=== PATIENT | female | born 1980 | race Caucasian/White ===

== ENCOUNTER 2016-07-24 03:27 | Emergency (ER) | payer OTHER ==
[~2016-07-24] VITALS: Ht 170.2 cm; Wt 149.7 kg
--- NOTE | ~2016-07-24 | EKG ---
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
[~2016-07-24 03:27] MED LIST: ANTIVERT25 MG PO; BP PILL
[2016-07-24] MEDS ORDERED: HYDROCHLOROTH12.5 M1 PO (03:39)
[2016-07-24 04:06] LABS: ABSOLUTE NEUTROPHILS 7.4 thou/uL (1.4-8.2); BASOPHILS 1.1 % (0.0-2.0); HEMATOCRIT 37.2 % (37.0-47.0); HEMOGLOBIN 12.4 gm/dL (12.0-15.0); LYMPHOCYTES 24.5 % (24.0-44.0); MCH 30.6 pg (26.0-34.0); MCHC 33.4 % (28.0-37.0); MCV 91.5 fL (80.0-100.0); PLATELET COUNT 207 thou/uL (150-400); POLYS 66.4 % (36.0-66.0); RBC 4.07 mil/uL (4.20-5.00); RDW 15.5 % (10.5-14.5); WBC 11.2 thou/uL (4.0-11.0)
[2016-07-24 04:11] LABS: MANUAL DIFF NO
[2016-07-24 04:17] LABS: CALCIUM 8.5 mg/dL (8.5-10.1); CREATININE 0.9 mg/dL (0.6-1.3); POTASSIUM 3.7 mmol/L (3.5-5.1)
[2016-07-24 04:23] LABS: ALBUMIN 3.2 g/dL (3.4-5.0); TOTAL BILIRUBIN 0.2 mg/dL (<0.1-1.0)
[2016-07-24 04:45] VITALS: BP 133/76
== END 2016-07-24 04:45 | disposition home or self-care (01) ==
LOC: ER 03:27
PROVIDERS: Emergency Medicine
DX: R07.9 Chest pain, unspecified (principal); R42 Dizziness and giddiness; F17.210 Nicotine dependence, cigarettes, uncomplicated; I10 Essential (primary) hypertension; Z88.5 Allergy status to narcotic agent; Z91.010 Allergy to peanuts

== ENCOUNTER 2016-11-23 23:57 | Emergency (ER) | payer OTHER ==
[~2016-11-23] VITALS: Ht 167.6 cm; Wt 154.7 kg
[~2016-11-23 23:57] MED LIST changes: +HYDROCHLOROTH12.5 M1 PO
[2016-11-24] MEDS ORDERED: NORCO 5-325 TA1 EACH PO (01:19)
[2016-11-24 01:34] VITALS: BP 136/85
== END 2016-11-24 01:49 | disposition home or self-care (01) ==
LOC: ER 23:57
DX: S83.92XA Sprain of unspecified site of left knee, initial encounter (principal); I10 Essential (primary) hypertension; F17.210 Nicotine dependence, cigarettes, uncomplicated; Z98.890 Other specified postprocedural states; Z88.5 Allergy status to narcotic agent; Z91.010 Allergy to peanuts; Z91.018 Allergy to other foods; W19.XXXA Unspecified fall, initial encounter; Y93.89 Activity, other specified; Y92.89 Other specified places as the place of occurrence of the external cause; Y99.8 Other external cause status

== ENCOUNTER 2017-03-29 16:40 | Emergency (ER) | payer OTHER ==
[~2017-03-29] VITALS: Ht 170.2 cm; Wt 162.4 kg
--- NOTE | ~2017-03-29 | EKG ---
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
[~2017-03-29 16:40] MED LIST changes: +NORCO 5-325 TA1 EACH PO
[2017-03-29 17:23] LABS: BASOPHILS 0.6 % (0.0-2.0); EOSINOPHILS 2.1 % (0.0-3.0); HEMATOCRIT 36.8 % (37.0-47.0); HEMOGLOBIN 12.4 gm/dL (12.0-15.0); LYMPHOCYTES 17.4 % (24.0-44.0); MCH 30.9 pg (26.0-34.0); MCHC 33.7 g/dL (28.0-37.0); MCV 91.7 fL (80.0-100.0); MONOCYTES 4.3 % (1.0-8.0); PLATELET COUNT 237 thou/uL (150-400); POLYS 75.6 % (36.0-66.0); RBC 4.01 mil/uL (4.20-5.00); RDW 14.7 % (10.5-14.5); WBC 13.2 thou/uL (4.0-11.0)
[2017-03-29 17:25] LABS: MANUAL DIFF NO
[2017-03-29 17:52] LABS: ANION GAP 8 mmol/L (7-16); BUN 17 mg/dL (7-18); CALCIUM 8.9 mg/dL (8.5-10.1); CHLORIDE 103 mmol/L (98-107); CO2 28 mmol/L (21-32); CREATININE 0.8 mg/dL (0.6-1.0); GLUCOSE 126 mg/dL (74-106); POTASSIUM 3.7 mmol/L (3.5-5.1); SODIUM 139 mmol/L (136-145)
[2017-03-29 18:00] LABS: ALBUMIN 3.5 g/dL (3.4-5.0); ALKALINE PHOSPHATASE 119 U/L (46-116); SGOT 14 U/L (15-37); SGPT 22 U/L (30-65); TOTAL BILIRUBIN 0.3 mg/dL (<0.1-1.0); TOTAL PROTEIN 7.3 g/dL (6.4-8.2); TROPONIN-I < 0.04 ng/mL (<0.04-0.07)
[2017-03-29] MEDS ORDERED: HYDROCHLOROTHIA25 M1 PO (18:11)
[2017-03-29] MEDS ORDERED: AMLODIPINE BESYL5 M1 PO (18:12)
[2017-03-29 18:36] VITALS: BP 139/87
== END 2017-03-29 18:37 | disposition home or self-care (01) ==
LOC: ER 16:40
PROVIDERS: Physician Assistant
DX: R07.89 Other chest pain (principal); I10 Essential (primary) hypertension; F10.99 Alcohol use, unspecified with unspecified alcohol-induced disorder; F17.210 Nicotine dependence, cigarettes, uncomplicated; Z88.5 Allergy status to narcotic agent; Z91.010 Allergy to peanuts; Z91.018 Allergy to other foods

== ENCOUNTER 2017-09-18 17:42 | Emergency (ER) | payer OTHER ==
[~2017-09-18] VITALS: Ht 167.6 cm; Wt 161.5 kg
--- NOTE | ~2017-09-18 | EKG ---
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 : 1980 Requested By: Gigi Israel Order Number: [id number] MD: Luciano Brumfield Measurements Intervals [place] Rate: 74 P: -33 [place]: 166 QRS: 41 QRSD: 91 T: 18 QT: 391 QTc: 434 Interpretive Statements Sinus rhythm No significant abnormality Compared to ECG 03/29/2017 16:51:16 No significant changes Electronically Signed On 09-19-2017 7:47:46 CDT by Luciano Brumfield [email or web address] <ELECTRONICALLY SIGNED> By: Luciano Brumfield MD, [facility] 09/19/17 0747 180 00 Luciano Brumfield MD, FACC /EPI
[~2017-09-18 17:42] MED LIST changes: +AMLODIPINE BESYL5 M1 PO; +HYDROCHLOROTHIA25 M1 PO
[2017-09-18 18:10] LABS: ABSOLUTE NEUTROPHILS 10.8 thou/uL (1.4-8.2); BASOPHILS 0.8 % (0.0-2.0); EOSINOPHILS 1.8 % (0.0-3.0); HEMATOCRIT 39.6 % (37.0-47.0); HEMOGLOBIN 13.4 gm/dL (12.0-15.0); LYMPHOCYTES 15.2 % (24.0-44.0); MCHC 33.8 g/dL (28.0-37.0); MCV 91.5 fL (80.0-100.0); MONOCYTES 4.6 % (1.0-8.0); PLATELET COUNT 259 thou/uL (150-400); POLYS 77.6 % (36.0-66.0); RBC 4.33 mil/uL (4.20-5.00); RDW 14.6 % (10.5-14.5)
[2017-09-18 18:19] LABS: ANION GAP 4 mmol/L (7-16); BUN 11 mg/dL (7-18); CALCIUM 9.4 mg/dL (8.5-10.1); CHLORIDE 105 mmol/L (98-107); CO2 28 mmol/L (21-32); CREATININE 0.9 mg/dL (0.6-1.0); GLUCOSE 96 mg/dL (74-106); POTASSIUM 3.7 mmol/L (3.5-5.1); SODIUM 137 mmol/L (136-145)
[2017-09-18 18:27] LABS: TROPONIN-I < 0.04 ng/mL (<0.06)
[2017-09-18] MEDS ORDERED: REGLAN 10 MG TA10 MG PO (19:14)
== END 2017-09-18 19:24 | disposition home or self-care (01) ==
LOC: ER 17:42
PROVIDERS: Physician Assistant
DX: R51 Headache (principal); R07.89 Other chest pain; I10 Essential (primary) hypertension; F17.210 Nicotine dependence, cigarettes, uncomplicated; Z88.5 Allergy status to narcotic agent; Z91.018 Allergy to other foods; Z91.010 Allergy to peanuts

== ENCOUNTER 2018-09-19 08:58 | Emergency (ER) | payer OTHER ==
[~2018-09-19] VITALS: Ht 170.2 cm; Wt 136.1 kg
[~2018-09-19 08:58] MED LIST changes: +REGLAN 10 MG TA10 MG PO
[2018-09-19 09:31] LABS: HEMATOCRIT 39.4 % (37.0-47.0); HEMOGLOBIN 13.7 gm/dL (12.0-15.0); MCH 31.5 pg (26.0-34.0); MCHC 34.7 g/dL (28.0-37.0); MCV 90.9 fL (80.0-100.0); RBC 4.34 mil/uL (4.20-5.00); RDW 15.1 % (10.5-14.5); WBC 10.5 thou/uL (4.0-11.0)
[2018-09-19 09:38] LABS: ANION GAP 6 mmol/L (7-16); BUN 14 mg/dL (7-18); CALCIUM 9.1 mg/dL (8.5-10.1); CHLORIDE 104 mmol/L (98-107); CO2 28 mmol/L (21-32); CREATININE 0.9 mg/dL (0.6-1.0); GLUCOSE 144 mg/dL (74-106); POTASSIUM 3.9 mmol/L (3.5-5.1); SODIUM 138 mmol/L (136-145)
[2018-09-19 09:48] LABS: TROPONIN-I <0.06 ng/mL (<0.06)
[2018-09-19 10:38] VITALS: BP 157/103
[2018-09-19] MEDS ORDERED: MECLIZINE HCL25 MG PO (10:51)
--- NOTE | 2018-09-19 17:11 | EKG ---
[address] [place] [place] [address] ELECTROCARDIOGRAM REPORT Name: CRISTI GREENE Room #: DEP VIVI Toney#: [id number] ������������������ Admission: 09/19/18 ������������������ Attend Phys: Discharge: 09/19/18 ������������������ Date of : 82 Report #: [id number] ����������������������������������������������������������������� [id number] THIS REPORT FOR: //name// [facility] ED Test Date: 2018-09-19 Test Time: 09:21:37 Pat Name: CRISTI GREENE Department: Room: Gender: F Manager Ct: : 1980 Requested By: Norris Knight Order Number: [id number] MD: Luciano Burmfield Measurements Intervals [place] Rate: 75 P: -3 [place]: 165 QRS: 48 QRSD: 99 T: 22 QT: 396 QTc: 443 Interpretive Statements Sinus rhythm Normal tracing Compared to ECG 11/26/2017 16:01:12 No significant changes Electronically Signed On 09-19-2018 17:11:41 CDT by Luciano Brumfield [email or web address] ��������������������������������������������� <ELECTRONICALLY SIGNED> ���������������������������������������� By: Luciano Brumfield MD, [facility] ��������������������������������������������� 09/19/18 1711 0921 0 Luciano Brumfield MD, FACC /EPI
== END 2018-09-19 11:09 | disposition home or self-care (01) ==
LOC: ER 08:58
PROVIDERS: Emergency Medicine
DX: R42 Dizziness and giddiness (principal); R05 Cough; I10 Essential (primary) hypertension; F17.210 Nicotine dependence, cigarettes, uncomplicated; Z88.5 Allergy status to narcotic agent; Z91.010 Allergy to peanuts

== ENCOUNTER 2018-12-17 22:04 | Emergency (ER) | payer BC ==
[~2018-12-17] VITALS: Ht 167.6 cm; Wt 158.8 kg
[~2018-12-17 22:04] MED LIST changes: +MECLIZINE HCL25 MG PO
[2018-12-18 00:05] LABS: URINE BILIRUBIN NEGATIVE (Negative); URINE BLOOD NEGATIVE (Negative); URINE CLARITY SL CLOUDY; URINE COLOR YELLOW; URINE GLUCOSE-RANDOM* NEGATIVE (Negative); URINE KETONES NEGATIVE (Negative); URINE LEUKOCYTES-REFLEX NEGATIVE (Negative); URINE NITRITE-REFLEX NEGATIVE (Negative); URINE PROTEIN (DIPSTICK) TRACE (Negative); URINE SPECIFIC GRAVITY 1.015 (1.005-1.035)
[2018-12-18] MEDS ORDERED: NORFLEX100 MG PO (00:18)
[2018-12-18 00:54] VITALS: BP 170/76
== END 2018-12-18 00:54 | disposition home or self-care (01) ==
LOC: ER 22:04
PROVIDERS: Emergency Medicine
DX: M54.6 Pain in thoracic spine (principal); I10 Essential (primary) hypertension; F17.210 Nicotine dependence, cigarettes, uncomplicated; Z98.890 Other specified postprocedural states; Z88.5 Allergy status to narcotic agent; Z91.010 Allergy to peanuts; Z91.018 Allergy to other foods

== ENCOUNTER 2019-02-28 10:22 | Emergency (ER) | payer BC ==
[~2019-02-28] VITALS: Ht 170.2 cm; Wt 158.8 kg
[~2019-02-28 10:22] MED LIST changes: +NORFLEX100 MG PO
[2019-02-28] MEDS ORDERED: NORVASC5 MG PO (10:31)
[2019-02-28 11:33] LABS: ABSOLUTE NEUTROPHILS 9.2 thou/uL (1.4-8.2); EOSINOPHILS 2.5 % (0.0-3.0); HEMATOCRIT 37.8 % (37.0-47.0); HEMOGLOBIN 12.7 gm/dL (12.0-15.0); LYMPHOCYTES 15.5 % (24.0-44.0); MCH 31.3 pg (26.0-34.0); MCHC 33.6 g/dL (28.0-37.0); MONOCYTES 4.5 % (1.0-8.0); PLATELET COUNT 224 thou/uL (150-400); POLYS 76.5 % (36.0-66.0); RBC 4.06 mil/uL (4.20-5.00); RDW 14.3 % (10.5-14.5)
[2019-02-28 11:47] LABS: ANION GAP 6 mmol/L (7-16); BUN 9 mg/dL (7-18); CHLORIDE 105 mmol/L (98-107); CO2 28 mmol/L (21-32); CREATININE 0.9 mg/dL (0.6-1.0); GLUCOSE 103 mg/dL (74-106); POTASSIUM 4.1 mmol/L (3.5-5.1); SODIUM 139 mmol/L (136-145)
[2019-02-28 11:57] LABS: ALBUMIN 3.4 g/dL (3.4-5.0); SGOT 10 U/L (15-37); SGPT 24 U/L (30-65); TOTAL BILIRUBIN 0.2 mg/dL (<0.1-1.0); TOTAL PROTEIN 7.6 g/dL (6.4-8.2); TROPONIN-I <0.06 ng/mL (<0.06)
--- NOTE | 2019-02-28 13:24 | EKG ---
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
[2019-02-28] MEDS ORDERED: VENTOLIN HFA 1818 GM INH (13:36)
[2019-02-28 14:09] VITALS: BP 148/82
== END 2019-02-28 14:10 | disposition home or self-care (01) ==
LOC: ER 10:22
PROVIDERS: Emergency Medicine
DX: J40 Bronchitis, not specified as acute or chronic (principal); F17.210 Nicotine dependence, cigarettes, uncomplicated; I10 Essential (primary) hypertension; Z88.5 Allergy status to narcotic agent; Z91.010 Allergy to peanuts; Z98.890 Other specified postprocedural states

== ENCOUNTER 2020-06-17 14:38 | Emergency (ER) | payer OTHER ==
[~2020-06-17] VITALS: Ht 170.2 cm; Wt 159.7 kg
[~2020-06-17 14:38] MED LIST changes: +NORVASC5 MG PO; +VENTOLIN HFA 1818 GM INH
[2020-06-17 16:16] VITALS: BP 127/53
== END 2020-06-17 16:17 | disposition home or self-care (01) ==
LOC: ER 14:38
DX: T78.1XXA Other adverse food reactions, not elsewhere classified, initial encounter (principal); R22.0 Localized swelling, mass and lump, head; I10 Essential (primary) hypertension; F17.210 Nicotine dependence, cigarettes, uncomplicated; Z98.890 Other specified postprocedural states; Z79.899 Other long term (current) drug therapy; Z91.018 Allergy to other foods; Z88.5 Allergy status to narcotic agent; Z91.010 Allergy to peanuts; X58.XXXA Exposure to other specified factors, initial encounter

== ENCOUNTER 2021-05-24 13:34 | Emergency (ER) | payer OTHER ==
[~2021-05-24] VITALS: Ht 170.2 cm; Wt 154.2 kg
[2021-05-24 13:41] VITALS: BP 193/111
[2021-05-24] MEDS ORDERED: ERYTHROMYCIN E3.5 G3 OPHTHALMIC (14:21)
== END 2021-05-24 14:25 | disposition home or self-care (01) ==
LOC: ER 13:34
DX: H10.9 Unspecified conjunctivitis (principal); I10 Essential (primary) hypertension; F17.210 Nicotine dependence, cigarettes, uncomplicated; Z98.890 Other specified postprocedural states; Z79.51 Long term (current) use of inhaled steroids; Z79.899 Other long term (current) drug therapy; Z88.6 Allergy status to analgesic agent; Z88.5 Allergy status to narcotic agent; Z91.018 Allergy to other foods; Z91.010 Allergy to peanuts

== ENCOUNTER 2021-08-04 07:51 | Emergency (ER) | payer OTHER ==
[~2021-08-04] VITALS: Ht 170.2 cm; Wt 174.2 kg
[~2021-08-04 07:51] MED LIST changes: +ERYTHROMYCIN E3.5 G3 OPHTHALMIC
[2021-08-04] MEDS ORDERED: VALSARTAN320 MG PO (08:05)
[2021-08-04] MEDS ORDERED: AMLODIPINE BESY10 MG PO (08:05)
[2021-08-04 10:27] VITALS: BP 165/82
== END 2021-08-04 10:29 | disposition home or self-care (01) ==
LOC: ER 07:51
DX: M25.461 Effusion, right knee (principal); I10 Essential (primary) hypertension; F17.210 Nicotine dependence, cigarettes, uncomplicated; Z98.890 Other specified postprocedural states; Z79.51 Long term (current) use of inhaled steroids; Z79.899 Other long term (current) drug therapy; Z88.5 Allergy status to narcotic agent; Z91.018 Allergy to other foods; Z91.010 Allergy to peanuts